=== PATIENT | male | born 1995 | race Caucasian/White ===

== ENCOUNTER 2025-03-25 18:49 | Inpatient (IN) ==
[2025-03-25] MEDS: ONDANSETRON INJ 2 MG/ML 2 ML VIAL IV STA (19:00)
[2025-03-25] MEDS: HYDROmorphone INJ 0.5 MG/0.5 ML SYR IV PRN (19:01)
--- NOTE | 2025-03-25 19:01 | Emergency Department Note ---
Impression & Plan Closed fracture dislocation of ankle, Fall, Bimalleolar fracture of right ankle ED Provider Note NAME: EFRAÍN POLANCO AGE: 29 SEX: F : 1995 ARRIVES VIA: Ambulance INFORMANT: Patient, EMS ED PROVIDER(S): Tee Arnold DO CHIEF COMPLAINT: Ankle pain HPI: The patient is a 29-year-old male who presented to the emergency department via BLS for right ankle pain. The patient slipped on ice and twisted and injured his right ankle. The patient was unable to bear weight. The patient was splinted prior to arrival. The patient states his pain is somewhat improved since the splinting. He denies any other injury. The patient denies having any chest pain or difficulty breathing. He has no neck pain. He does not take oral anticoagulants. He has no previous medical history. ROS: See above HPI for pertinent positives & negatives. A total of 10 systems reviewed and were otherwise negative. PAST MEDICAL HISTORY: See Below PAST SURGICAL HISTORY: See Below FAMILY HISTORY: See Below SOCIAL HISTORY: See Below HOME MEDICATIONS: See Below ALLERGIES: See Below VITALS: See Below PHYSICAL EXAMINATION: GENERAL: The patient is awake and alert. The patient is very anxious and appears uncomfortable. EYES: The conjunctivae are clear. The pupils are round and reactive. EARS, NOSE, MOUTH AND THROAT: The nose is without any evidence of any deformity. Mucous membranes are moist. Tongue is midline. NECK: The neck is nontender and supple. RESPIRATORY: Normal respiratory effort is noted there is no evidence of wheezing rhonchi or rales CARDIOVASCULAR: Regular rate and rhythm noted there no murmurs rubs or gallops normal S1 normal S2. GASTROINTESTINAL: The abdomen is soft. Abdomen is nontender. BACK: No midline tenderness or or step-off noted range of motion in flexion extension as well as rotation no signs of muscle spasm noted MUSCULOSKELETAL/EXTREMITIES: There is gross deformity noted of the right ankle. There does appear to be anterior displacement of the ankle in relationship to the foot. There is no tenderness over the fifth metatarsal. There is no tenderness over the proximal fibular head. There is no decreased range of motion in either shoulder or left lower extremity. SKIN: There is no obvious evidence of any rash. There are no petechiae, pallor or cyanosis noted. NEUROLOGIC: Patient is awake alert and oriented x3 MEDICAL DECISION MAKING: The patient is a 29-year-old male who presented to the emergency department after a fall. The patient injured his right ankle. He did have a fracture dislocation of his right ankle on initial x-rays. The patient was treated with IV pain medication the emergency department. He was reevaluated multiple times. The patient's initial fracture did reveal fibular deviation of the foot with external rotation of the foot. It was reduced nicely in the emergency department. Splint was applied. Patient had good capillary refill and significant pain relief. I discussed the patient's radiographic studies with the on-call orthopedic physician. The patient appears to be a good candidate for inpatient management and likely surgical management tomorrow. He would not be a good candidate for outpatient management at this time given his social situation. The patient was agreeable to this. Triage Nursing notes reviewed. Prior medical records reviewed Vital Signs: reviewed and remarkable for no significant abnormalities Differential diagnosis: Fracture, subluxation, dislocation, contusion, ligamentous injury, neurovascular, compartment syndrome, rhabdomyolysis, as well as other pathologies. ER treatment provided: See below Diagnostics interpreted by me: ECG: none Cardiac Monitoring: An order was placed for continuous cardiac monitoring. The monitor shows a rate of 72 bpm with sinus rhythm. Laboratory studies: As stated above and show below. Imaging studies: See below. Radiographic imaging was reviewed by myself Consultation(s): I discussed this case with Dr. Fulton who is on-call for orthopedic surgery. Past Med/Surg History Problem List (Updated 03/26/25 @ 09:55 by Tad Barreto MD) Acute disruption of syndesmosis of ankle joint Tear of deltoid ligament of right ankle Fracture of ankle, right, closed Bimalleolar fracture of right ankle (Acute) Fall (Acute) Closed fracture dislocation of ankle (Acute) Social History Smoking Status: Never smoker Second Hand Exposure: No; Do You Dip or Chew Tobacco: No; Tobacco Cessation Education Requested by Patient: No Hx Alcohol Use: Yes Hx Substance Use: No Preferred Language: Swazi Communication Ability: Effective Heel Cutter Required: No Beliefs That Will Affect Care: None Current Living Situation: Other Current Living Situation Comment: Has a roommate Other Information That Helps Us Care for You: No Feels Safe at Home: Yes Safety Concerns: Feels Safe At This Time Assistive Devices: None Allergies Allergies Allergy/AdvReac Type Severity Reaction Status Date / Time ibuprofen Allergy Hives Verified 03/25/25 20:49 Home Meds Home Medications Medication Instructions Recorded Confirmed No Known Home Medications 03/25/25 03/25/25 Results & Data (ED) Vital Signs Vital Signs - 24 hr 03/25/25 18:41 03/25/25 18:41 03/25/25 18:54 Temperature 36.7 C Temperature Source Oral Pulse Rate 87 Pulse Rhythm Regular Regular Pulse Strength Normal Respiratory Rate 14 16 Respiratory Effort / Characteristics Non-Labored Non-Labored Respiratory Depth Normal Normal Respiratory Pattern Regular Regular Blood Pressure 183/110 H Blood Pressure Mean 134 Blood Pressure Position Lying Pulse Oximetry 98 100 100 Oxygen Delivery Method Room Air Room Air Room Air Sepsis New/Unexplained Change in Mental Status No Sepsis Action Taken by Nursing No Action Required 03/25/25 19:04 Temperature Temperature Source Pulse Rate 72 Pulse Rhythm Pulse Strength Respiratory Rate Respiratory Effort / Characteristics Respiratory Depth Respiratory Pattern Blood Pressure Blood Pressure Mean Blood Pressure Position Pulse Oximetry Oxygen Delivery Method Sepsis New/Unexplained Change in Mental Status Sepsis Action Taken by [facility] Medications Current Medication List: was personally reviewed by me Laboratory Data Attestation: I reviewed the patient's lab results. 03/25/25 18:58 03/25/25 18:58 Lab Results 03/25/25 Range/Units 18:58 WBC 5.60 (4.8-10.8) K/ul RBC 5.69 H (4.20-5.40) M/uL Hgb 17.6 H (12.0-16.0) g/dL Hct 49.7 H (37.0-47.0) % MCV 87.3 (80.0-100.0) fL MCH 30.9 (25.0-34.0) pg MCHC 35.4 (32.0-36.0) g/dL RDW Std Deviation 38.5 (36.4-46.3) fL RDW Coeff of [place]rbén 12.1 (11.5-14.5) % Plt Count 150 (130-400) K/uL MPV 11.2 (9.4-12.4) fL Immature Gran % (Auto) 0.4 % Neut % (Auto) 57.6 % Lymph % (Auto) 33.4 % [place] % (Auto) 7.7 % Eos % (Auto) 0.5 % Baso % (Auto) 0.4 % Neut # (Auto) 3.23 (1.40-6.50) K/uL Lymph # (Auto) 1.87 (1.20-3.40) K/uL [place] # (Auto) 0.43 (0.11-0.59) K/uL Eos # (Auto) 0.03 (0.00-0.50) K/uL Baso # (Auto) 0.02 (0.00-0.20) K/uL Immature Gran # (Auto) 0.02 (0.01-0.20) K/uL Sodium 137 (136-145) mmol/L Potassium 4.3 (3.5-5.1) mmol/L Chloride 104 (98-107) mmol/L Carbon Dioxide 26 (21-32) mmol/L Anion Gap 7 (3-11) BUN 8 (6-23) mg/dl Creatinine 0.92 (0.6-1.2) mg/dl Est Cr Clr Drug Dosing 119.2 ml/min eGFR 86.44 BUN/Creatinine Ratio 8.7 L (10-20) Glucose 109 H (70-99(Fasting)) mg/dl Calcium 9.9 (8.6-10.3) mg/dl Total Bilirubin 0.8 (0.2-1.0) mg/dl AST 29 (13-39) U/L ALT 61 H (7-52) U/L Alkaline Phosphatase 69 (34-104) U/L Total Protein 7.4 (6.0-8.3) gm/dl Albumin 4.4 (3.4-5.0) gm/dl Globulin 3.0 (2.5-4.0) gm/dl Albumin/Globulin Ratio 1.5 (0.9-2) Lipase 11 (11-82) U/L Administered Medications Discontinued Medications Hydromorphone HCl (Hydromorphone Inj 0.5 Mg/0.5 Ml Syr) 0.5 mg IV Q15M PRN PRN Reason: Pain Stop: 04/08/25 18:53 Last Admin: 03/26/25 06:09 Dose: 0.5 mg Documented By: héctor Admin: 03/25/25 19:34 Dose: 0.5 mg Documented By: una Admin: 03/25/25 19:01 Dose: 0.5 mg Documented By: una Cefazolin Sodium (Ancef 2000mg) 2,000 mg in 15 mls @ 3.75 mls/min IV PREOP SHRUTHI; Protocol Stop: 03/26/25 16:00 Last Admin: 03/26/25 10:30 Dose: 3.75 mls/min Documented By: ANDRES Tranexamic Acid (Tranexamic Acid / 0.7% Nacl) 1,000 mg in 100 mls @ 600 mls/hr IV PREOP SHRUTHI Stop: 03/26/25 16:00 Last Infusion: 03/26/25 14:19 Dose: Infused Documented By: Admin: 03/26/25 10:32 Dose: 600 mls/hr Documented By: ANDRES Cefazolin Sodium (Ancef 2000mg) 2,000 mg in 15 mls @ 3.75 mls/min IV ONE ONE; Protocol Stop: 03/26/25 14:15 Last Admin: 03/26/25 15:58 Dose: Not Given Documented By: ADINA Midazolam HCl (Midazolam Hcl 1 Mg/Ml 2ml Vial) Confirm Administered Dose 2 mg .ROUTE .STK-MED ONE Stop: 03/25/25 19:27 Last Admin: 03/25/25 19:36 Dose: Not Given Documented By: una Midazolam HCl (Midazolam Hcl 1 Mg/Ml 2ml Vial) 2 mg IV NOW STA Stop: 03/25/25 19:29 Last Admin: 03/25/25 19:34 Dose: 2 mg Documented By: una Miscellaneous Information (Patient's Allergy Info Needs Entered) 1 each N/A Q15M SHRUTHI Stop: 04/24/25 20:44 Last Admin: 03/25/25 20:50 Dose: 1 each Documented By: ALFRED Ondansetron HCl (Ondansetron Inj 2 Mg/Ml 2 Ml Vial) 4 mg IV NOW STA Stop: 03/25/25 18:55 Last Admin: 03/25/25 19:00 Dose: 4 mg Documented By: una Imaging Data Attestation: I personally reviewed and interpreted this imaging study as follows: My Impression: X-ray of the right ankle was obtained in the emergency department. My interpretation is bimalleolar ankle fracture with anterior dislocation. Final report is pending. X-ray of the tib-fib was obtained postreduction. My interpretation is improved anatomic alignment of the right ankle fracture dislocation, final report pending. Radiologist's Impression: Ankle X-Ray 03/25/25 18:54 History: Pain Comparison: None Findings/impression: Fracture dislocation injury, with tibial sided dislocation of the tibia relative to the talus. Oblique fracture of the distal fibular diaphysis. Significant widening of the tib-fib interface. Tiny avulsion fracture of the medial malleolus. Impaction of the posterior malleolus on the head of the talus. Electronically signed by Joaquín Barnes 03-25-2025 9:35 PM Tibia/Fibula X-Ray 03/25/25 19:35 Exam(s): XR RIGHT TIB/FIB, 2 views EXAM: XR Right Tibia and Fibula, 2 Views CLINICAL HISTORY: Reason for exam: post reduction. TECHNIQUE: Frontal and lateral views of the right tibia and fibula. COMPARISON: No relevant prior studies available. FINDINGS: Bones/joints: Obliquely oriented minimally displaced distal fibular fracture. No dislocation. Soft tissues: Unremarkable. No radiopaque foreign body. IMPRESSION: As above Electronically signed by: Stephen Light MD 03/25/25 21:46 PM Discharge Plan Visit Data Chief Complaint: Ankle Pain Stated Complaint: ankle injury ED Provider: Tee Arnold Discharge Problem: Closed fracture dislocation of ankle, Fall, Bimalleolar fracture of right ankle Patient Disposition: Admitted As Inpatient Condition: Fair Discharge Instructions Interventions: ED Discharge Assessment Last Done: 03/25/25 22:09
[2025-03-25 19:12] LABS: Immature Granulocytes # (auto) 0.02 K/uL (0.01-0.20); Immature Granulocytes % (auto) 0.4 %; Mean Corpuscular Hemoglobin 30.9 pg (25.0-34.0); Mean Corpuscular Volume 87.3 fL (80.0-100.0); Platelet Count 150 K/uL (130-400); RDW Standard Deviation 38.5 fL (36.4-46.3); White Blood Count 5.60 K/ul (4.8-10.8)
[2025-03-25 19:29] LABS: Alanine Aminotransferase 61.0 U/L (7-52); Albumin Globulin Ratio 1.5 (0.9-2); Albumin Level 4.4 gm/dl (3.4-5.0); Alkaline Phosphatase 69.0 U/L (34-104); Anion Gap 7.0 (3-11); Bilirubin,Total 0.8 mg/dl (0.2-1.0); Blood Urea Nitrogen 8.0 mg/dl (6-23); Calcium 9.9 mg/dl (8.6-10.3); Carbon Dioxide 26.0 mmol/L (21-32); Chloride 104.0 mmol/L (98-107); Globulin 3.0 gm/dl (2.5-4.0); Glucose 109.0 mg/dl (70-99(Fasting)); Lipase 11.0 U/L (11-82); Potassium 4.3 mmol/L (3.5-5.1); Sodium 137.0 mmol/L (136-145); Total Protein 7.4 gm/dl (6.0-8.3)
[2025-03-25] MEDS: MIDAZOLAM HCL 1 MG/ML 2ML VIAL IV STA (19:34)
[2025-03-25] MEDS: MIDAZOLAM HCL 1 MG/ML 2ML VIAL ONE (19:36)
[2025-03-25] MEDS ORDERED: diphenhydrAMINE Capsule 25 MG CAP PO PRN (20:33)
[2025-03-25] MEDS ORDERED: ACETAMINOPHEN 325 MG TAB PO PRN (20:33)
[2025-03-25] MEDS ORDERED: SODIUM CHLORIDE 0.9% 1,000 ML IV SCH (20:45)
--- NOTE | 2025-03-25 21:36 | XRay Report ---
History: Pain Comparison: None Findings/impression: Fracture dislocation injury, with tibial sided dislocation of the tibia relative to the talus. Oblique fracture of the distal fibular diaphysis. Significant widening of the tib-fib interface. Tiny avulsion fracture of the medial malleolus. Impaction of the posterior malleolus on the head of the talus. Electronically signed by Joaquín Barnes 03-25-2025 9:35 PM
--- NOTE | 2025-03-25 21:47 | XRay Report ---
Exam(s): XR RIGHT TIB/FIB, 2 views EXAM: XR Right Tibia and Fibula, 2 Views CLINICAL HISTORY: Reason for exam: post reduction. TECHNIQUE: Frontal and lateral views of the right tibia and fibula. COMPARISON: No relevant prior studies available. FINDINGS: Bones/joints: Obliquely oriented minimally displaced distal fibular fracture. No dislocation. Soft tissues: Unremarkable. No radiopaque foreign body. IMPRESSION: As above Electronically signed by: Stephen Light MD 03/25/25 21:46 PM
[2025-03-25] MEDS ORDERED: ONDANSETRON INJ 2 MG/ML 2 ML VIAL IV PRN (23:12)
--- NOTE | 2025-03-26 05:25 | Magnetic Resonance Report ---
Exam(s): MRI RIGHT ANKLE Without Contrast EXAM: MR Right Lower Extremity Without Intravenous Contrast, Ankle CLINICAL HISTORY: Reason for exam: fall with fracture. TECHNIQUE: Multiplanar magnetic resonance images of the right ankle without intravenous contrast. COMPARISON: No relevant prior studies available. FINDINGS: LIGAMENTS: Anterior talofibular: Unremarkable. Posterior talofibular: Unremarkable. Anterior tibiofibular: Unremarkable. Posterior tibiofibular: Unremarkable. Calcaneofibular: Unremarkable. Deltoid: Unremarkable. Spring: Unremarkable. Lisfranc: Unremarkable. Muscles: There is intermuscular edema and intramuscular edema seen posterior medial to the fracture site in the distal fibular shaft. There is intramuscular edema identified in the flexor hallucis longus, adjacent to the fracture site. There is focal disruption of the interosseous membrane adjacent to the fracture site seen best on axial image 7-11, series 5. Fluid: Unremarkable. No joint effusion. Sinus tarsi: Unremarkable. Tarsal tunnel: Unremarkable. Plantar fascia: Unremarkable. Cartilage: Unremarkable. Bones/joints: There is acute obliquely oriented fracture in the distal fibular shaft. No dislocation seen at the ankle joint. Soft tissues: Soft tissue edema seen in the distal right leg and around the right ankle. IMPRESSION: Feliciano type C lateral malleolar fracture No dislocation at the ankle joint Electronically signed by: Regis Treviño MD 03/26/25 05:24 AM
--- NOTE | 2025-03-26 07:35 | Anesthesiology Consultation ---
Date of Service March 26, 2025 Assessment & Plan Chart Review Chart Review: Acceptable Risk for Surgery and Patient NOT seen in Pre Admission Testing Consults Requested none ASA [id number] Proposed Anesthesia Anesthesia Type: General Regional Regional Laterality: Right Site: Popliteal and Adductor Canal History Surgery Operation Date: 03/26/25 11:00 Proposed Procedures p Open Reduction Internal Fixation Ankle(Right) - Tad Barreto MD Height/Weight Height: 5 ft 9 in Weight: 109 kg Allergies Allergy/AdvReac Type Severity Reaction Status Date / Time ibuprofen Allergy Hives Verified 03/25/25 20:49 Medications Home Medications Medication Instructions Recorded Confirmed Last Taken No Known Home Medications 03/25/25 03/25/25 Unknown Active Medications Generic Name Dose Route Start Last Admin Trade Name Freq PRN Reason Stop Dose Admin Hydromorphone HCl 0.5 mg 03/25/25 18:54 03/26/25 06:09 Hydromorphone Inj 0.5 Mg/0.5 Ml Syr IV 04/08/25 18:53 0.5 mg Q15M PRN Administration Pain Past Medical History obese Exercise / Class Metabolic Activity II 4-5 Yardwork/Stairs/Walk up hill Past Anesthesia History No Hx of Anesthesia Complications and No Family Hx of Anesthesia Complications History of PONV No Hx of PONV and No Hx of Motion Sickness Social History Smoking Status: Never smoker Do You Dip or Chew Tobacco: No Hx Alcohol Use: Yes alcohol intake frequency: holidays/special occasions only Alcohol Intake Frequency Comment: Pt states rarely consumes alcohol Hx Substance Use: No substance use type: does not use Physical Exam Vital Signs Last Vital Signs Temp 36.5 C 03/25/25 22:30 Pulse 68 03/25/25 22:30 Resp 18 03/25/25 22:30 BP 155/95 H 03/25/25 22:30 Pulse Ox 97 03/25/25 22:30 O2 Del Method Room Air 03/25/25 22:30 Testing Laboratory Results 03/25/25 18:58 03/25/25 18:58
[2025-03-26] MEDS ORDERED: PROPOFOL IV EMULSION 10 MG/ML 20 ML VIAL IV ONE (09:33)
[2025-03-26] MEDS ORDERED: LIDOCAINE 2% 2 ML VIAL/AMP(20MG/ML) INFIL ONE (09:33)
[2025-03-26] MEDS ORDERED: DEXAMETHASONE SOD INJ 4 MG/ML VIAL ONE (09:33)
[2025-03-26] MEDS ORDERED: ONDANSETRON INJ 2 MG/ML 2 ML VIAL ONE (09:33)
[2025-03-26] MEDS ORDERED: MIDAZOLAM HCL 1 MG/ML 2ML VIAL ONE (09:34)
[2025-03-26] MEDS ORDERED: ROCURONIUM BROMIDE 10 MG/ML 5 ML VIAL IV ONE ×3 (09:37→11:44)
[2025-03-26] MEDS ORDERED: ROPIVACAINE 0.5% 5 MG/ML 30 ML VIAL ONE (09:40)
[2025-03-26] MEDS ORDERED: BUPIVACAINE/EPINEPHRINE 0.25% 1:200,000 30 ML VIAL ONE ×2 (09:40→09:41)
[2025-03-26] MEDS ORDERED: ACETAMINOPHEN 1000 MG/100 ML IV IV ONE (09:40)
--- NOTE | 2025-03-26 09:58 | History & Physical Report ---
Date of Service March 26, 2025 Assessment & Plan (1) Fracture of ankle, right, closed: Plan: I discussed with the patient his diagnosis and treatment options. This is an unstable pattern injury therefore surgery is the recommended treatment. Surgical plan would be an open reduction internal fixation of his right ankle fracture, syndesmosis stabilization, and open deltoid ligament repair. I had a long discussion about the risks and benefits of surgery, alternatives to surgery, and expected outcomes. Patient elects to proceed with surgery. All questions were answered. Informed consent was signed. Surgical site was marked. Patient will proceed to the operating room this morning. We will plan to readmit him to the hospital after surgery for IV antibiotics and pain control. Should be cleared to discharge home tomorrow. Postoperative DVT prophylaxis could be a challenge because of his inability to take pills or to self administer Lovenox injections. It sounds like we can have his roommates administer him aspirin after surgery but will need to confirm this prior to him discharging from the hospital. (2) Tear of deltoid ligament of right ankle: (3) Acute disruption of syndesmosis of ankle joint: Admission and Anticipated Discharge Date Admission Date: March 25, 2025 History of Present Illness Primary Care Provider: NO PCP The patient is a 29-year-old male who slipped on ice and twisted and injured his right ankle outside his apartment building in [facility]. The patient had immediate onset of pain and deformity and was unable to bear weight. He was brought to the emergency room by ambulance and x-rays were obtained dem onstrating a fracture dislocation of his right ankle. He underwent a closed reduction and splinting in the emergency room.. He denies any other injury. The patient denies having any chest pain or difficulty breathing. He has no neck pain. He does not take oral anticoagulants. He has no previous medical history. Denies numbness or tingling in his toes. He works as a director business intelligence. He lives with 2 roommates. He denies any history of a blood clot in himself or his immediate family members. He says he has a hard time taking medications because he was forced to take medications when he was a teenager and he cannot take pills himself. Even if he crushes the pills he says he cannot take them. He says he cannot give himself shots either. He says if the nurse gives him pills then he is okay with it. He also says his old girlfriend used to crush up pills for him and put them in his food and then he was okay. He believes that his roommates could do this for him. Allergies Allergy/AdvReac Type Severity Reaction Status Date / Time ibuprofen Allergy Hives Verified 03/25/25 20:49 Home Medications Medication Instructions Recorded Confirmed Type No Known Home Medications 03/25/25 03/25/25 History Past Med/Surg History Problem List (Updated 03/26/25 @ 09:55 by Tad Barreto MD) Acute disruption of syndesmosis of ankle joint Tear of deltoid ligament of right ankle Fracture of ankle, right, closed Bimalleolar fracture of right ankle (Acute) Fall (Acute) Closed fracture dislocation of ankle (Acute) Social History Smoking Status: Never smoker Second Hand Exposure: No; Do You Dip or Chew Tobacco: No; Tobacco Cessation Education Requested by Patient: No Hx Alcohol Use: Yes Hx Substance Use: No Preferred Language: Niuean Communication Ability: Effective Photocopy Operator Required: No Beliefs That Will Affect Care: None Current Living Situation: Other Current Living Situation Comment: Has a roommate Other Information That Helps Us Care for You: No Feels Safe at Home: Yes Safety Concerns: Feels Safe At This Time Assistive Devices: None Physical Exam Physical Exam: On exam he is pleasant male sitting in the hospital bed in no acute distress. Alert and oriented x 3. Breathing is nonlabored Right ankle is splinted. His exposed toes are warm and well-perfused. He is able to wiggle his toes. Reports sensation intact and moving light touch over his exposed toes. Results & Data Results & Data Vital Signs (Past 12 Hours) Vital Signs Temp Pulse Pulse Resp BP BP Pulse Ox 03/26/25 07:41 36.8 C 80 16 140/84 96 03/25/25 22:30 03/25/25 22:30 36.5 C 68 18 155/95 H 97 03/25/25 22:09 O2 Del Method 03/26/25 07:41 Room Air 03/25/25 22:30 Room Air 03/25/25 22:30 Room Air 12/13/25 22:09 Room Air Diagnostic Findings I independently interpreted his injury films as well as the postreduction films and an MRI that was done yesterday. He has a Feliciano C/SER4 equivalent injury with posterior lateral dislocation of the talus under the tibia and widening of the medial clear space consistent with a deltoid ligament injury. MRI shows that the deep deltoid ligament may be intact although the superficial deltoid is likely ripped off the anterior surface of the medial malleolus. Syndesmosis is ruptured as well. Code Status & VTE Plan VTE Prophylaxis Plan VTE Prophylaxis will be ordered: Yes
[2025-03-26] MEDS ORDERED: ceFAZolin 330 MG/ML 1 GM VIAL ONE (10:31)
[2025-03-26] MEDS: TRANEXAMIC ACID / 0.7% NACL 1,000 MG/100 ML BAG IV SCH (10:32)
[2025-03-26] MEDS ORDERED: PHENYLEPHRINE HCL 10 MG/ML VIAL ONE (10:42)
[2025-03-26] MEDS ORDERED: PHENYLEPHRINE 100MCG/ML 5ML SYR ONE ×2 (11:00→11:18)
[2025-03-26] MEDS ORDERED: NALOXONE HCL 0.4 MG/1 ML VIAL/CARP IV PRN (11:35)
[2025-03-26] MEDS ORDERED: PROMETHAZINE HCL 6.25 MG in SODIUM CHLORIDE 0.9% 50 ML IV PRN (11:35)
[2025-03-26] MEDS ORDERED: ATROPINE SULFATE 0.1 MG/ML 10ML SYR IV PRN (11:35)
[2025-03-26] MEDS ORDERED: HYDROmorphone INJ 1 MG/ML SYRINGE IV PRN (11:35)
[2025-03-26] MEDS ORDERED: FLUMAZENIL 0.1 MG/1 ML 10 ML VIAL IV PRN (11:35)
[2025-03-26] MEDS ORDERED: ONDANSETRON INJ 2 MG/ML 2 ML VIAL IV PRN (11:35)
[2025-03-26] MEDS ORDERED: SUGAMMADEX SODIUM 200 MG/2 ML VIAL IV ONE (12:50)
--- NOTE | 2025-03-26 13:09 | Operative Report ---
Post Operative Report Pre & Post Diagnosis Operation Date: 03/26/25 11:00 Pre-Op Diagnosis: Fracture of Right ankle, closed Tear of deltoid ligament of right ankle Acute disruption of syndesmosis of ankle joint Post-Op Diagnosis: Fracture of Right ankle, closed Tear of deltoid ligament of right ankle Acute disruption of syndesmosis of ankle joint I identified the patient and participated in the time-out.: Yes Procedure Operation Date: 03/26/25 11:00 Actual Procedures p Right Ankle Open Reduction Internal Fixation , Syndesmosis Stabilization, Open Deltoid Ligament Repair(Right) - Tad Barreto MD Surgeon Dr Barreto Derrick Boat Leverman Raven Ledesma Estimated Blood Loss 10 Findings Consistent with Post-Op Diagnosis Specimens none Description of Procedure Pt was taken to operating room and properly positioned for procedure. Refer to anesthesia's note for anesthesia used. Pt was given pre-op antibiotics. Prepped and draped in sterile fashion. I was present during the entire case and assisted with positioning, instrumentation, closure and dressings. Please see surgeon's op report for further detail. Pt was awake and transferred to PACU in stable condition I attest to the content of the Intraoperative Record and any orders documented therein. Any exceptions are noted below.
--- NOTE | 2025-03-26 13:15 | Operative Report ---
Post Operative Report Pre & Post Diagnosis Operation Date: 03/26/25 11:00 Preoperative diagnosis: Right ankle fracture, syndesmosis disruption, and deltoid ligament disruption. Postop diagnosis: Right ankle fracture, syndesmosis disruption, and deltoid ligament disruption. I identified the patient and participated in the time-out.: Yes Procedure Operation Date: 03/26/25 11:00 1. Open reduction internal fixation right ankle fracture 2. Open deltoid ligament repair 3. Syndesmosis stabilization Surgeon Tad Barreto MD Trauma Director Raven Ledesma PA-C. No resident or fellow was available to assist. Estimated Blood Loss 10 Findings Consistent with Post-Op Diagnosis Specimens None Anesthesia Type General Regional Complications none Disposition Disposition: Recovery Room Indications 29-year-old male, slipped on the ice yesterday in [facility]. Immediate onset of pain and deformity. Brought to the emergency room where x- rays showed a Feliciano C ankle fracture dislocation with medial clear space widening consistent with disruption of the deltoid ligament and the syndesmosis. This fracture was reduced and splinted. He was admitted to the hospital and elevated his ankle overnight. This is an unstable pattern injury and therefore surgery is the recommended treatment. I do long discussion with patient about the risks and benefits of surgery, alternatives to surgery, and expected outcomes. After reviewing all these he elected to proceed with surgery. All questions were answered. Informed consent was signed. Description of Procedure Patient was identified in the preoperative holding area where his surgical site was marked. He was given a block by anesthesia and brought back to the operating room where he moved onto the operating room table and general anesthesia was administered. He was then carefully moved into the sloppy lateral position on a beanbag. All bony prominences were padded. Perioperative antibiotics and 1 g of IV tranexamic acid were administered. He was prepped and draped in the usual sterile fashion. Prior to incision a multidisciplinary timeout was called. All in the room were in agreement. I began by exsanguinating the limb with an Esmarch bandage. Tourniquet was inflated to 250 mmHg. A 12 cm long incision was made starting at the tip of the fibula along its posterior margin extending proximally. I dissected down to the subcutaneous tissues. Crossing veins were electrocoagulated with the Bovie. We searched for the peroneal nerve but did not convert into our dissection. I then incised the fascia overlying the fibula and peroneal musculature. The peroneal musculature was then retracted posteriorly to expose the proximal fibula. Starting at the level of the fracture I then dissected distally subperiosteally using a new 15 blade knife. This was extended all the way to the tip of the fibula so we could retract the peroneals and expose the fracture. Next, the fracture was opened up and the fracture hematoma was removed with a suction device. Fracture was then reduced anatomically using lion-jaw clamps. I then placed a single 3.0 mm front to back lag screw. This held the reduction nicely. Next, an 8 hole Arthrex anatomic plate was brought up onto the field. This fit the shape of the fibula nicely. I secured the plate proximally with 3.5 mm cortical screw in bicortical fashion and distally with a 3.0 mm KreuLock screw. Fluoroscopy was brought in and the position of the plate was checked and was excellent. I was happy with the reduction of the fracture as well. I then filled all the distal locking screw holes which gave us a total of 5 Kreulock screws distal to the fracture. I then placed 3 more 3.5 mm cortical screws proximal to the fracture. Distal the fracture I placed 1 more 3.5 mm locking screw. Excellent fixation was obtained. At this point fluoroscopy was used to assess his syndesmosis and deltoid ligament. External rotation stress test revealed syndesmotic and medial clear space widening. Talar tilt test showed the talus to go and valgus under fluoroscopy with a valgus stress consistent with a deltoid ligament injury. Therefore deltoid ligament repair was indicated. A damp sponge was placed in the lateral wound and the leg was externally rotated to expose the medial aspect of the ankle. 5 cm long incision was made centered over the anterior aspect of the medial malleolus. I dissected down to subcutaneous tissues. The saphenous vein and nerve were identified. These were retracted posteriorly to expose the anterior aspect of the medial malleolus and the anterior ankle joint line. The anterior capsule had been ripped off the anterior aspect of the medial malleolus extending onto the anterior ankle joint line medially allowing us to see directly into the ankle joint. I irrigated out the ankle joint with normal saline. The talus that the we could see showed a 3 x 2 mm full-thickness cartilage defect in the medial dome anteriorly. A loose fragment of cartilage was removed from the joint. The joint was then reirrigated and then. Placed 3 Arthrex fiber tack anchors 2 of which were double loaded and 2 of which were single loaded. Sutures from these were passed in horizontal mattress fashion to repair the anterior capsule and superficial deltoid ligament back down onto the anterior aspect of the medial malleolus and anterior ankle joint line. Sutures were tied down. Excellent fixation was obtained. At this point we turned our attention to the syndesmosis. A periarticular reduction clamp was placed with 1 time on the plate laterally and the second time directly on the bone wall taking great care to retract the saphenous nerve and vein posteriorly. The clamp was tightened down. We repeated our external rotation stress test and there was no medial clear space widening or syndesmotic widening. I then placed a Arthrex tight rope through the special tight rope hole on the plate. Medially we visualized the button being placed directly down onto the tibia. Tight rope was then tensioned down. The periarticular reduction clamp was then removed and I repeated his external rotation stress test. The medial clear space and syndesmosis remain well reduced which I was happy with. At this point tourniquet was let down and meticulous hemostasis was ensured. The wounds were irrigated out with copious amounts of normal saline. The fascia laterally was closed with 2-0 Vicryl suture in running fashion taking great care to ensure peroneal nerve was not near any of our sutures. The deep dermis was closed with buried 2-0 Vicryl and 3-0 Vicryl in interrupted fashion. Skin was closed with tiffany. Patient was then placed into a well-padded posterior and U plaster slab splint with the ankle held in neutral. He was then awoke from anesthesia and transferred to the recovery room in stable condition. Postoperative course: Patient will be readmitted for postoperative IV antibiotics and pain control. He will work with physical therapy tomorrow. He will need to be nonweightbearing for the next 6 weeks. 2 weeks from now he will be transitioned out of the splint into a cam walker boot so we can begin ankle range of motion exercises. Likely will be able to discharge home tomorrow on aspirin for DVT prophylaxis. I attest to the content of the Intraoperative Record and any orders documented therein. Any exceptions are noted below.
--- NOTE | 2025-03-26 13:43 | Anesthesiology Progress Note ---
Date of Service March 26, 2025 Anesthesia Post Procedure Vital Signs Vital Signs: Temp Pulse Pulse Pulse Pulse Resp BP 03/26/25 13:30 90 15 03/26/25 13:20 82 15 03/26/25 13:12 36.4 C L 89 15 03/26/25 07:41 36.8 C 80 16 03/25/25 22:30 03/25/25 22:30 36.5 C 68 18 03/25/25 22:09 03/25/25 20:33 87 16 03/25/25 19:04 72 03/25/25 18:54 03/25/25 18:41 16 03/25/25 18:41 36.7 C 87 14 183/110 H BP BP Pulse Ox O2 Del Method O2 Flow Rate 03/26/25 13:30 156/85 H 95 Room Air 03/26/25 13:20 139/80 97 Room Air 03/26/25 13:12 139/86 97 Oxymask 10 03/26/25 07:41 140/84 96 Room Air 03/25/25 22:30 Room Air 03/25/25 22:30 155/95 H 97 Room Air 03/25/25 22:09 Room Air 03/25/25 20:33 148/85 H 98 Room Air 03/25/25 19:04 03/25/25 18:54 100 Room Air 03/25/25 18:41 100 Room Air 03/25/25 18:41 98 Room Air Pain Intensity Right Ankle: Pain Intensity: 2 Transfer of Care Handoff Completed per policy Notes Mental Status: alert / awake / arousable Patient Amnestic to Procedure: Yes Nausea / Vomiting: adequately controlled Pain: adequately controlled Airway Patency, RR, SpO2: stable & adequate BP & HR: stable & adequate Hydration State: stable & adequate Anesthetic Complications: no major complications apparent
--- NOTE | 2025-03-26 13:45 | XRay Report ---
Exam: 3 views of the right ankle Exam reason: Postop Comparison: 03/25/2025 Technique: AP, lateral and oblique views of the right ankle were obtained Findings: The patient is status post internal fixation of the previously shown fibular fracture via the placement of an orthopedic sideplate with multiple screws. It is surgical anchor is now seen stabilizing the distal tibiofibular syndesmosis. There is been satisfactory reduction of the dislocation of the tibiotalar joint. Multiple skin tiffany are noted over the bilateral ankle. A plaster cast has been placed to stabilize the extremity. No unusual soft tissue calcifications are identified and no radiopaque foreign bodies are seen. Impressions: Expected postsurgical appearance of the ankle with satisfactory reduction of previously shown fracture dislocation. Electronically signed by Raji Godinez 03-26-2025 13:44 PM
[2025-03-26] MEDS ORDERED: TAMSULOSIN HCL 0.4 MG CAP PO PRN (14:12)
[2025-03-26] MEDS ORDERED: MAGNESIUM HYDROXIDE SUSP 30 ML UDC PO PRN (14:12)
[2025-03-26] MEDS ORDERED: METOCLOPRAMIDE HCL INJ 5 MG/ML 2 ML VIAL IV PRN (14:12)
--- NOTE | 2025-03-26 16:03 | Orthopedic Progress Note ---
Date of Service March 26, 2025 Assessment & Plan (1) Fracture of ankle, right, closed: (2) Tear of deltoid ligament of right ankle: (3) Acute disruption of syndesmosis of ankle joint: Plan Status post right ankle open reduction internal fixation repair and deltoid ligament repair 03/26/[address] Barreto. -Nonweightbearing x 6 weeks, splint will remain intact for the next 2 weeks. Need crutches or knee scooter to assist him in getting around. -Pain control: Tylenol 1000 mg every 8 hours, meloxicam 15 mg daily for 2 weeks and oxycodone 5 mg every 4 hours as needed. Patient is unable to administer oral medications and self however he says his roommates will be able to assist. -Frequent icing and elevation above the heart to help control swelling -Postoperative antibiotics: Ancef 2 g every 8 hours, 24-hour stop -DVT phx: SCDs and JEAN non operative leg. ASA 81mg BID x 30 days -PT/OT - NWB, can do wiggle toes and do range of motion, will need walker/crutches/or knee scooter -CM to assist in discharge planning -Will check labs CBC, CMP tomorrow -Will need follow up in our office in 2 weeks. Plan will be to take splint down, get x-rays and transition him to a boot. He will need to remain NWB x 6 weeks. After two week and once he is in boot, we will get him set up with OP PT and he can start gentle range of motion. -All of his questions and concerns were addressed. Discussed with Dr Barreto. Admission and Anticipated Discharge Date Admission Date: March 25, 2025 Subjective Patient seen and examined bedside. Patient said he is overall doing well. He is eating. No nausea/CP/SOB. His block is still in effect and he does not having any pain currently. Physical Exam Physical Exam: Pt sitting up in bed AA, NAD. Splint in place. Leg elevated. Pt's block still effect so unable to wiggle toes but can slightly feel me touching his toes. Results & Data Vital Signs (Past 12 Hours) Vital Signs Temp Pulse Pulse Resp BP Pulse Ox O2 Del Method 03/26/25 15:10 36.4 C L 81 16 123/73 97 Room Air 03/26/25 14:39 36.5 C 77 16 124/76 95 Room Air 03/26/25 14:12 36.5 C 74 16 136/82 98 Room Air 03/26/25 14:00 63 15 132/78 97 Room Air 03/26/25 13:45 88 10 L 146/97 H 94 Room Air 03/26/25 13:40 36.7 C 83 10 L 155/92 H 97 Room Air 03/26/25 13:30 90 15 156/85 H 95 Room Air 03/26/25 13:20 82 15 139/80 97 Room Air 03/26/25 13:12 36.4 C L 89 15 139/86 97 Oxymask 03/26/25 07:41 36.8 C 80 16 140/84 96 Room Air O2 Flow Rate 03/26/25 15:10 03/26/25 14:39 03/26/25 14:12 03/26/25 14:00 03/26/25 13:45 03/26/25 13:40 03/26/25 13:30 03/26/25 13:20 03/26/25 13:12 10 03/26/25 07:41
[2025-03-26] MEDS: DOCUSATE SODIUM 100 MG CAP PO SCH (20:23)
[2025-03-26] MEDS: ASPIRIN 81 MG ECTAB PO SCH (20:23)
[2025-03-26] MEDS: SENNA 8.6 MG TAB PO SCH (20:23)
[2025-03-26] MEDS: HYDROmorphone INJ 0.5 MG/0.5 ML SYR IV PRN (22:09)
[2025-03-26] MEDS ORDERED: LORazepam 0.5 MG TAB PO STA (23:20)
[2025-03-26] MEDS ORDERED: LORazepam 1 MG/1 ML SYR ED Inj Use IV STA (23:22)
[2025-03-26] MEDS: LORazepam Inj 0.5 MG in SYRINGE 0.25 ML IV ONE (23:32)
[2025-03-27] MEDS: LIDOCAINE 5% 1 PATCH TD STA (02:50)
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
[2025-03-27 06:23] LABS: Hematocrit (blood only) 44.4 % (42.0-52.0); Hemoglobin 16.1 g/dL (14.0-18.0); Immature Granulocytes # (auto) 0.05 K/uL (0.01-0.20); Immature Granulocytes % (auto) 0.4 %; Mean Corpuscular Hemoglobin 32.2 pg (25.0-34.0); Mean Corpuscular Volume 88.8 fL (80.0-100.0); Platelet Count 135 K/uL (130-400); RDW Standard Deviation 37.9 fL (36.4-46.3); Red Blood Count 5.00 M/uL (4.70-6.10); White Blood Count 12.70 K/ul (4.8-10.8)
[2025-03-27 06:43] LABS: Anion Gap 8.0 (3-11); Blood Urea Nitrogen 8.0 mg/dl (6-23); Calcium 9.9 mg/dl (8.6-10.3); Carbon Dioxide 29.0 mmol/L (21-32); Chloride 100.0 mmol/L (98-107); Creatinine Clr Calc Pharmacy 139.6 ml/min; Glucose 96.0 mg/dl (70-99(Fasting)); Potassium 3.9 mmol/L (3.5-5.1); Sodium 137.0 mmol/L (136-145)
[2025-03-27 07:12] VITALS: BP 133/69; RESP 18; TEMP 99.3; O2SAT 95
--- NOTE | 2025-03-27 08:20 | Orthopedic Progress Note ---
Date of Service March 27, 2025 Assessment & Plan (1) Fracture of ankle, right, closed: Plan Status post right ankle open reduction internal fixation repair and deltoid ligament repair 03/26/[address] Barreto. -Nonweightbearing x 6 weeks, splint will remain intact for the next 2 weeks. Need crutches or knee scooter to assist him in getting around. -Pain control: Tylenol 1000 mg every 8 hours, meloxicam 15 mg daily for 2 weeks and oxycodone 5 mg every 4 hours as needed. Patient is unable to administer oral medications and self however he says his roommates will be able to assist. -Frequent icing and elevation above the heart to help control swelling -Postoperative antibiotics: Ancef 2 g every 8 hours, 24-hour stop -DVT phx: SCDs and JEAN non operative leg. ASA 81mg BID x 30 days, starting today -PT/OT - NWB, can do wiggle toes and do range of motion, will need walker/crutches/or knee scooter -CM to assist in discharge planning -CBC, CMP WNL -Will need follow up in our office in 2 weeks. Plan will be to take splint down, get x-rays and transition him to a boot. He will need to remain NWB x 6 weeks. After two week and once he is in boot, we will get him set up with OP PT and he can start gentle range of motion. -Plan to discharge home today pending case management eval and PT/OT evaluation. He would like to go home today and feel comfortable doing this and says his pain is controlled. 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 -All of his questions and concerns were addressed. Admission and Anticipated Discharge Date Admission Date: March 25, 2025 Subjective Patient seen and examined bedside. Patient said he is overall doing well. His block wore off. He says that last night he woke up crying in pain. Eventually the nurse was able to get him to take oral oxycodone and he says that definitely helped. Physical Exam Physical Exam: Pt laying in bed AA, NAD. Splint in place. Leg elevated. Splint was fitting appropriately. He was able to freely wiggle all of his toes and had sensation intact distally over the dorsal and plantar aspect of all of his toes Results & Data Vital Signs (Past 12 Hours) Vital Signs Temp Pulse Resp BP Pulse Ox O2 Del Method 03/27/25 07:11 37.4 C 86 18 133/69 95 Room Air 03/27/25 05:19 36.7 C 70 16 148/71 H 93 Room Air 03/27/25 01:07 37.3 C 88 18 130/77 98 Room Air 03/26/25 21:09 37.2 C 86 16 115/73 96 Room Air Laboratory Results 03/27/25 Range/Units 05:35 WBC 12.70 H (4.8-10.8) K/ul RBC 5.00 (4.70-6.10) M/uL Hgb 16.1 (14.0-18.0) g/dL Hct 44.4 (42.0-52.0) % MCV 88.8 (80.0-100.0) fL MCH 32.2 (25.0-34.0) pg MCHC 36.3 H (32.0-36.0) g/dL RDW Std Deviation 37.9 (36.4-46.3) fL RDW Coeff of Rubén 11.8 (11.5-14.5) % Plt Count 135 (130-400) K/uL MPV 11.7 (9.4-12.4) fL Immature Gran % (Auto) 0.4 % Neut % (Auto) 74.9 % Lymph % (Auto) 14.1 % Traill % (Auto) 10.2 % Eos % (Auto) 0.2 % Baso % (Auto) 0.2 % Neut # (Auto) 9.51 H (1.40-6.50) K/uL Lymph # (Auto) 1.79 (1.20-3.40) K/uL Traill # (Auto) 1.30 H (0.11-0.59) K/uL Eos # (Auto) 0.02 (0.00-0.50) K/uL Baso # (Auto) 0.03 (0.00-0.20) K/uL Immature Gran # (Auto) 0.05 (0.01-0.20) K/uL Sodium 137 (136-145) mmol/L Potassium 3.9 (3.5-5.1) mmol/L Chloride 100 (98-107) mmol/L Carbon Dioxide 29 (21-32) mmol/L Anion Gap 8 (3-11) BUN 8 (6-23) mg/dl Creatinine 0.95 (0.6-1.4) mg/dl Est Cr Clr Drug Dosing 139.6 ml/min eGFR 111.12 BUN/Creatinine Ratio 8.4 L (10-20) Glucose 96 (70-99(Fasting)) mg/dl Calcium 9.9 (8.6-10.3) mg/dl
[2025-03-27] MEDS: MELOXICAM 7.5 MG TAB PO SCH (08:57)
[2025-03-27] MEDS: MULTIVITAMIN TAB PO SCH (08:57)
--- NOTE | 2025-03-27 14:17 | Fluoroscopy Report ---
INTRAOPERATIVE RADIOGRAPHS CLINICAL HISTORY: Open reduction and internal fixation of the right ankle. Fluoro time: 24 seconds Ka,r: 0.72 mGy FINDINGS: 7 spot fluoroscopic views of the right ankle are presented. There has been buttress plate f ixation of a distal fibular fracture with orthodox of near-anatomic alignment. Several cortical sc rews transfix the plate. An additional small plate is seen along the distal tibia, and a cortical scr ew transfixes the fibular fracture site. The orthopedic hardware appears intact. Overlying soft tissu e edema is noted. IMPRESSION: Intraoperative images from open reduction and fixation of a distal fibular fracture as ab ove. Electronically signed by: Sam Maddox M.D. 03/27/2025 2:16 PM
[2025-03-27 14:22] VITALS: PULSE 68
[2025-03-27] MEDS: REMOVE LIDODERM PATCH ONE (15:40)
--- NOTE | 2025-03-29 14:02 | Discharge Summary ---
Date of Service March 29, 2025 Admission HPI Per Admitting Provider Patient is a 29 y/o male with no previous medical history admitted after due to ankle fracture. Patient states slipped on ice and twisted his right ankle. Evaluated at bedside. He states was anxious early tonight after the surgery. He does have trouble taking pills on his own because he was forced to take medications when he was a teenager. He's currently taking po medications crush on his food without difficulty. States pain is 6/10 on his right ankle. Complains of back pain as well. States have hx of smoking, only 2-3 cigarette per month. Denied any alcohol use or any other substance. Denied any chest pain, SOB, palpitations. Denied any abdominal pain, nausea, vomiting or any other symptoms Principal Diagnosis S/P Right Ankle Open Reduction Internal Fixation , Syndesmosis Stabilization, Open Deltoid Ligament Repair(Right) Discharge Exam Pt laying in bed AA, NAD. Splint in place. Leg elevated. Splint was fitting appropriately. He was able to freely wiggle all of his toes and had sensation intact distally over the dorsal and plantar aspect of all of his toes Discharge Data Allergies Allergy/AdvReac Type Severity Reaction Status Date / Time ibuprofen Allergy Hives Verified 03/25/25 20:49 Consultations 03/26/25 23:07 Consult Hospitalist Routine Procedures Performed Operation Date: 03/26/25 11:00 Actual Procedures p Right Ankle Open Reduction Internal Fixation , Syndesmosis Stabilization, Open Deltoid Ligament Repair(Right) - Tad Barreto MD Ordered Studies 03/25/25 20:41 MR ankle RT wo con Stat 03/26/25 FL ankle RT min 3V RTN Routine 03/26/25 09:52 US - OR guided needle placemen Stat Hospital Course (1) Tear of deltoid ligament of right ankle: (2) Fracture of ankle, right, closed: (3) Acute disruption of syndesmosis of ankle joint: Plan Status post right ankle open reduction internal fixation repair and deltoid ligament repair 03/26/[address] Barreto. -Nonweightbearing x 6 weeks, splint will remain intact for the next 2 weeks. Need crutches or knee scooter to assist him in getting around. -Pain control: Tylenol 1000 mg every 8 hours, meloxicam 15 mg daily for 2 weeks and oxycodone 5 mg every 4 hours as needed. Patient is unable to administer oral medications and self however he says his roommates will be able to assist. -Frequent icing and elevation above the heart to help control swelling -Postoperative antibiotics: Ancef 2 g every 8 hours, 24-hour stop -DVT phx: SCDs and JEAN non operative leg. ASA 81mg BID x 30 days, starting today -PT/OT - NWB, can do wiggle toes and do range of motion, will need walker/crutches/or knee scooter -CM to assist in discharge planning -CBC, CMP WNL -Will need follow up in our office in 2 weeks. Plan will be to take splint down, get x-rays and transition him to a boot. He will need to remain NWB x 6 weeks. After two week and once he is in boot, we will get him set up with OP PT and he can start gentle range of motion. -Plan to discharge home pending case management eval and PT/OT evaluation. He would like to go home today and feel comfortable doing this and says his pain is controlled. He knows to belt picker his medications and has his roommate who will be able to assist him with taking medications. -All of his questions and concerns were addressed. Total Time Total Time Spent Total Time Spent (In Minutes): 45 Discharge Plan Discharge Items Patient Disposition: Home - Self-Care Reason For Visit: ankle injury Discharge Diagnosis: Status post right ankle open reduction internal fixation, syndesmotic repair, deltoid ligament repair Condition on Discharge: Good Activity: Per Instructions section Weightbearing: Right non-weightbearing Non-emergency contact: Surgeon Call non-emergency contact if: you have any medication questions, your symptoms worsen, your pain is not controlled, your temperature is above 101.5 and your wound has increased drainage Follow-up/Referrals: Javed Grimaldo PA-C [Physician Monogram Machine Operator] - 04/12/25 9:00 am PCPGINA [Primary Care Provider] - Diet: Regular Addtl Attending Provider Instructions: Post-operative Instructions Dear Patient and Family/Friends, Before you are discharged from the hospital, it is important to know what to expect when you get home after surgery. To that end, we have created this sheet of discharge instructions which covers many commonly asked questions. Make sure you go through this sheet in its entirety with your nurse before you are discharged. Please note that we will go over the specifics of your surgery and recovery when you return for your first post-operative visit. Sincerely, Dr. Barreto Medications: Aspirin 81mg twice a day for 30 days is recommended to help prevent blood clots. Wear the JEAN compression stockings for 2 weeks after your surgery. For pain control we recommend taking Tylenol 1,000mg every 8 hours, Meloxicam 15mg daily for 2 weeks, and oxycodone 5mg (1 tab) every 4-6 hours as needed. Pain Expect to be in a fair amount of pain after surgery. Remember, our goal is not to eliminate your pain, but to make it tolerable. It is a good idea to stay ahead of your pain by taking the medications you were prescribed once you get home. Typically, the pain starts improving 3-7 days after surgery. You should start weaning off the narcotic pain medication (oxycodone, hydrocodone, hydromorphone, morphine) as soon as your pain improves. Please call our office if your pain is not adequately controlled. Ice Ice your operative site at least 5 times a day for 15-30 minutes at a time. Make sure you have a thin cloth between the ice or cooling unit and your skin to prevent escalona bite. This is especially important if you received a nerve block. Continue icing your operative site for the first 5-7 days after surgery, then as needed. Diet/Nausea/Vomiting Start by drinking clear liquids and eating crackers. If you can tolerate this, then you may resume your normal diet. If you feel nauseated or vomit, take Zofran/ondansetron (if prescribed). Please call our office if you have intractable nausea or vomiting, or, if after hours, you may go to the Emergency Room for help. Constipation Constipation is a common side effect of narcotic pain medication. If you have not had a bowel movement within 2 days after surgery, we recommend purchasing an over the counter laxative such as Milk of Magnesia, Dulcolax, or Miralax from a local pharmacy, and taking it as instructed. Call our clinic if any questions. Slings and Braces Leave splint on, clean, dry and in-tact. This will need to be covered with a shower cover or waterproof cover when you shower to avoid it getting wet. This can be done with a trash bag or you can purchase a "waterproof cast cover" on [employer]. You will be seen in the office at 2 weeks at which point we will take your splint down, obtain x-rays and likely place you in a cam boot. Weight bearing and Range of Motion. Non weight bearing for 6 weeks. You will need crutches/knee scooter to assist in ambulation Physical therapy You will be given a prescription for physical therapy or occupational therapy at your first post-operative appointment. You may begin therapy and gentle range of motion after [address] in a cam boot JEAN stockings If you were given white stockings, these are to be worn at all times except to shower (on both legs) for the first 2 weeks after surgery. Driving You may not drive while taking narcotic pain medication or while in a cast, splint, sling or brace. You, the patient, need to make the final determination about when you are safe to drive, however, the earliest you may consider driving after surgery is below Fracture repair: 6 weeks Return to Work Your return to work depends on what surgery was done and what type of work you do. Please bring any paperwork your employer needs completed to your first post-operative visit. Also, bring a description of your job duties, as this helps us to understand what risks you may face at work. Travel Avoid long distance travel (greater than 1 hour) in airplanes and cars for the first 6 weeks after surgery. If you must travel, you need to have a Doppler ultrasound done before you travel to rule out a blood clot in your legs. Follow-up Follow up in Dr Barreto's office in 2 weeks as scheduled, please call our office if you experience any fevers, chills, uncontrollable pain, any issues with your splint, or have any other questions or concerns. When to call the office It is normal to have swelling and bruising in the limb that was operated on. This will improve with time. It is also normal to have fevers for the first 2 days after surgery. Reasons you should call your doctor include: Uncontrolled pain; Nausea, vomiting, or constipation that does not improve with medication; Fevers over 101.5, chills, sweats; Drainage or bleeding from the wound; Foul odor; Spreading areas of redness; Any other concerns. Contact Information Please call Dr. Barreto's office at [phone] with any concerns. Pending Studies at Discharge: No Stand-Alone Forms: [facility], Smoking Cessation Medications and DC Order Prescriptions: New acetaminophen 325 mg Tablet 650 mg PO Q6H PRN (Reason: pain) Qty: 30 0RF aspirin 81 mg Tablet,Delayed Release (Dr/Ec) 81 mg PO BID 30 Days Qty: 60 0RF meloxicam 7.5 mg Tablet 15 mg PO QAM 14 Days Qty: 28 0RF oxycodone 5 mg tablet 5 mg PO Q6H PRN (Reason: pain) Qty: 24 0RF Rx Instructions: 1 tablet for pain 1-5 2 tablets for pain 6-10 Discharge Orders: Discharge Order (Routine); Ordered 03/27/25 Ordered By: Raven Ledesma Admission Data Admit Date/Time: 03/25/25 20:33 Attending Provider: Tad Barreto Admit Provider: Tad Barreto Primary Care Provider: PCP,NO Other Providers: Tre Siddiqi Other Interventions: Discharge Summary Assessment (RN) Last Done: 03/27/25 14:21
[2025-03-29 15:15] LABS: Creatinine Clr Calc Pharmacy 144.1 ml/min
[2025-03-29 15:16] LABS: Hematocrit (blood only) 49.7 % (42.0-52.0); Hemoglobin 17.6 g/dL (14.0-18.0); Red Blood Count 5.69 M/uL (4.70-6.10)
== END 2025-03-27 15:40 | disposition home or self-care (01) | DRG 494 ==
LOC: EDSEX → ED 18:49 → 3E 20:33